=== PATIENT | female | born 1985 | race Caucasian/White ===

== ENCOUNTER → 2020-12-26 | Outpatient (CLI) | payer BC ==
--- NOTE | 2020-12-26 12:43 | RAD ---
US ABDOMEN LIMITED History: Reason: RUQ PAIN / Spl. Instructions: / History: Comparison: None. Technique: Transabdominal ultrasound images are obtained of the right upper quadrant. Findings: Liver is normal in echogenicity. Right hepatic lobe measures 14.4 cm. Portal flow is hepatopedal. No cholelithiasis. No gallbladder wall thickening. No pericholecystic fluid.Negative sonographic Murp hy sign. Common bile duct measures 4 mm in diameter. Visualized pancreas not well seen due to overlying bowel gas. The right kidney measures 10.8 x 5.5 x 5.4 cm. No hydronephrosis. Aorta and IVC not well seen due to overlying bowel gas. IMPRESSION: 1. Unremarkable right upper quadrant ultrasound. Electronically signed by: Aayush Ryan DO (12/26/2020 12:41 PM) [id number]
== END ==
LOC: US 12:06
PROVIDERS: ATTEND Nurse Practitioner Women's Health
DX: R10.11 Right upper quadrant pain (principal)
CPT/HCPCS: 76705

== ENCOUNTER → 2021-06-14 | Outpatient (CLI) | payer BC ==
--- NOTE | 2021-06-16 11:25 | RAD ---
XR CHEST 2V History: Reason: COUGH / Spl. Instructions: / History: Comparison: None. Findings: No consolidation or pleural effusion. Normal heart size. No pneumothorax. Impression: 1. No acute cardiopulmonary process. Electronically signed by: Aayush Ryan DO (06/16/2021 11:22 AM) [id number]
== END ==
LOC: RAD 21:48
PROVIDERS: ATTEND Emergency Medicine
DX: R05.9 Cough, unspecified (principal)
CPT/HCPCS: 71046